=== PATIENT | female | born 1960 | race Caucasian/White ===

== ENCOUNTER 2023-01-29 23:40 | Inpatient (IN) | payer OTHER ==
[~2023-01-29] VITALS: Ht 172.7 cm; Wt 71.5 kg
[2023-01-29 23:59] LABS: BASOPHILS ABSOLUTE AUTO 0.03 K/mm3 (0.00-0.23); BASOPHILS PERCENT AUTO 0 % (0-2); EOSINOPHILS PERCENT AUTO 0 % (0-6); Hematocrit 42.2 % (33.0-51.0); Hemoglobin 14.2 g/dL (11.5-16.0); IMMATURE GRAN ABSOLUTE AUTO 0.05 K/mm3 (0.00-0.10); IMMATURE GRAN PERCENT AUTO 0 % (0-1); LYMPHOCYTES ABSOLUTE AUTO 0.36 K/mm3 (0.84-5.20); LYMPHOCYTES PERCENT AUTO 2 % (21-46); MONOCYTES ABSOLUTE AUTO 0.36 K/mm3 (0.16-1.47); MONOCYTES PERCENT AUTO 2 % (4-13); Mean Corpuscular HGB 26.2 pg (26.0-34.0); Mean Corpuscular HGB Conc 33.6 g/dL (31.5-36.5); Mean Corpuscular Volume 78 fL (80-100); Mean Platelet Volume 9.9 fL (9.1-12.4); NEUTROPHILS ABSOLUTE AUTO 13.95 K/mm3 (1.96-9.15); NEUTROPHILS PERCENT AUTO 95 % (41-73); Platelet Count 168 K/mm3 (150-400); RDW Coefficient Variation 13.5 % (11.7-14.2); RDW Standard Deviation 38.1 fL (35.1-46.3); Red Blood Cell Count 5.43 M/mm3 (3.80-5.20); White Blood Cell Count 14.75 K/mm3 (4.00-11.30)
[2023-01-30 00:12] LABS: Albumin, Blood 3.9 g/dL (3.4-5.0); Bilirubin, Total 0.6 mg/dL (0.1-1.0); Bun/Creatinine Ratio 19.2 (12.0-20.0); Calcium, Blood 10.6 mg/dL (8.5-10.1); Creatinine, Blood 1.04 mg/dL (0.40-1.00); Potassium, Blood 4.2 mmol/L (3.5-5.5); Total Protein, Blood 7.9 g/dL (6.4-8.2)
[2023-01-30 02:00] LABS: Source, Urine Straight Cath
[2023-01-30 02:06] LABS: Appearance, Urine Clear (Clear); Bilirubin, Urine Neg (Neg); Blood, Urine 1+ (Neg); Color, Urine Yellow (P-Yellow); Glucose Qualitative, Urine Neg (Neg); Ketones, Urine Neg (Neg); Leukocyte Esterase, Urine Neg (Neg); Nitrite, Urine Neg (Neg); Protein, Urine 2+ (Neg); Specific Gravity, Urine 1.025 (1.003-1.022); Urobilinogen, Urine NORM (Normal)
[2023-01-30 02:19] LABS: U Amphetamine Screen Not Detected; U Barbituate Screen Not Detected; U Benzodiazapine Screen Not Detected; U Buprenorphine Screen Not Detected; U Cannabinoids Screen Not Detected; U Cocaine Screen Not Detected; U Methadone Screen Not Detected; U Methamphetamine Screen Not Detected; U Opiates Screen Not Detected; U Oxycodone Screen Not Detected; U Phencyclidine Screen Not Detected; U Propoxyphene Screen Not Detected
[2023-01-30 02:22] LABS: Amorphous Light (0-Heavy); Bacteria Mod /hpf; Granular Casts 0-2 /lpf (0); Hyaline Casts 0-2 /lpf (0-2); Red Blood Cells, Urine 0-2 /hpf (0-2); Squamous Epithelial Cells Few /hpf (Few); White Blood Cells, Urine 0-2 /hpf (0-5)
[2023-01-30 03:20] LABS: BASOPHILS ABSOLUTE AUTO 0.03 K/mm3 (0.00-0.23); BASOPHILS PERCENT AUTO 0 % (0-2); EOSINOPHILS PERCENT AUTO 0 % (0-6); Hematocrit 43.1 % (33.0-51.0); Hemoglobin 14.3 g/dL (11.5-16.0); IMMATURE GRAN ABSOLUTE AUTO 0.04 K/mm3 (0.00-0.10); IMMATURE GRAN PERCENT AUTO 0 % (0-1); LYMPHOCYTES ABSOLUTE AUTO 0.41 K/mm3 (0.84-5.20); LYMPHOCYTES PERCENT AUTO 3 % (21-46); MONOCYTES ABSOLUTE AUTO 0.46 K/mm3 (0.16-1.47); MONOCYTES PERCENT AUTO 4 % (4-13); Mean Corpuscular HGB 26.2 pg (26.0-34.0); Mean Corpuscular HGB Conc 33.2 g/dL (31.5-36.5); Mean Corpuscular Volume 79 fL (80-100); Mean Platelet Volume 9.8 fL (9.1-12.4); NEUTROPHILS ABSOLUTE AUTO 12.25 K/mm3 (1.96-9.15); NEUTROPHILS PERCENT AUTO 93 % (41-73); Platelet Count 158 K/mm3 (150-400); RDW Coefficient Variation 13.7 % (11.7-14.2); RDW Standard Deviation 39.2 fL (35.1-46.3); Red Blood Cell Count 5.46 M/mm3 (3.80-5.20); White Blood Cell Count 13.19 K/mm3 (4.00-11.30)
[2023-01-30 03:31] LABS: Albumin, Blood 3.7 g/dL (3.4-5.0); Albumin/Globulin Ratio 0.9 (0.8-1.8); Bilirubin, Total 0.5 mg/dL (0.1-1.0); Bun/Creatinine Ratio 18.8 (12.0-20.0); Calcium, Blood 10.2 mg/dL (8.5-10.1); Creatinine, Blood 1.12 mg/dL (0.40-1.00); Globulin, Blood 4.1 g/dL (2.2-4.0); Potassium, Blood 4.4 mmol/L (3.5-5.5); Total Protein, Blood 7.8 g/dL (6.4-8.2)
[2023-01-30 04:01] VITALS: BP 107/77
[2023-01-30 04:16] LABS: Base Excess Venous 3.3 mmol/L; Bicarbonate Venous 26.6 mmol/L (24.0-30.0); PCO2 Venous 45.6 mmHg (38-42)
[2023-01-30 04:18] LABS: Creatine Kinase MB 10.9 ng/mL (0.0-3.6); Creatine Kinase MB Index 4.7 (0.0-4.0)
--- NOTE | 2023-01-30 05:37 | NUR ---
Assumed care of pt at 0340 as an ER admit. Minimally responsive, sounds made with strong verbal stimuli only. Upper extremities slightly contracted, with plantar flexion noted in BLE. Pupils unequal with R being sluggish and L brisk. Minimal responses to pain on RUE and RLE, weak responses in LUE and LLE. Maintains over 90% on 2L NC, baseline is RA. LS dim t/o with shallow breathing pattern. SR with BBB 70's, BEVERLY CP status secondary to AMS. VSS. Cool lower extremities. Urinary incontinence, attends in place. Will report to marguerite RN.
--- NOTE | 2023-01-30 06:49 | NUR ---
0350 - PT ARRIVED TO PCU 09 FROM ED. NOTIFIED BY PRIMARY RN OF CONCERNS OF PT MENTATION AND POTENTIAL CHANGE IN ST ELEVATION ON TELEMETRY. PT DIAPHORETIC ON ARRIVAL TO FLOOR. CBG OBTAINED AND WNL, OTHER VSS, R SIDED DEFICIT AND HYPERREFLEXIA NOTED, GCS [address] BRENDA RICARDO NOTIFIED OF ABOVE FINDINGS AND CONCERNS BY THIS RN. MD STATES NO CHANGES IN EKG. SUGGESTED LUMBAR PUNCTURE D/T PT PRESENTATION, DR. RICARDO STATES NO LP AT THIS TIME UNLESS PT FEVERS. UPDATED PRIMARY RN - SHE RESPONSE
[2023-01-30 07:20] VITALS: BP 113/79
--- NOTE | 2023-01-30 08:15 | NUR ---
AM NOTE: PATIENT WAKES DURING BEDSIDE REPORT AND SMILES AT THIS RN. STATES SHE IS NOT HAVING ANY PAIN BUT IS CONFUSED AT WHY SHE IS HERE AND UNABLE TO TELL ME DETAILS. STATES NAME, , THAT SHE IS VISITING FROM [place], HER PARENTS NAMES AND THINKS THAT SHE IS IN [place]. NOT ABLE TO RECALL ANY DETAILS ON HOW SHE GOT TO THE HOSPITAL OR HER DAY YESTERDAY. STATES SHE REMEMBERS FEELING ILL BUT CANNOT RECALL ANY SYMPTOMS. PERRLA. 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 NOTED TO BE OVERALL WEAK AND SLOW WHEN MOVING. ABLE TO TURN SELF IN BED. DENIES NUMBNESS/TINGLING. DENIES OVERALL PAIN. NO FACIAL DROOP NOTED. UPON INITIAL ASSESSMENT THIS RN ORIENTED TO HOSPITAL, CALL LIGHT AND UNIT. RETURNING ABOUT 15 MIN LATER THIS RN HAD TO REORIENT TO HOSPITAL, CALL LIGHT AND UNIT ONCE AGAIN. PATIENT NOT ABLE TO RETAIN SHORT TERM AT THIS TIME. ON 2L NASAL CANNULA SATING MID 90'S. BASELINE ROOM AIR. LUNGS SOUNDING CLEAR AND DIMINISHED THROUGHOUT. ABLE TO HEAR RIGHT SIDED LUNG SOUNDS MORE CLEARLY COMPARED TO LEFT. DENIES SOB/COUGH. EVEN AND UNLABORDED RESPIRATIONS. TELE SHOWING SR WITH BBB. DENIES CHEST PAIN/PRESSURE/PALPITATIONS. BP STABLE. HR 70-80'S. ECHO PLANNED FOR THIS AM WELL CARDIOLOGY CONSULT. PATIENT NPO. TROPS AND CK LABS TRENDING. NS INFUSING PER EMAR. DENIES ABDOMINAL PAIN/NAUSEA. BOWEL TONES PRESENT. ATTENDS IN PLACE. NPO. Q6 BLOOD SUGARS. SKIN OVERALL C/D/I. PALE SKIN. SPOKE WITH SISTER MILTON ([phone]) ON PHONE THIS AM WITH PATIENT PERMISSION. PLAN FOR MILTON AND PATIENT TO ARRIVE AT HOSPITAL AROUND NOON TODAY. BED ALARM ON, CALL LIGHT IN REACH.
--- NOTE | 2023-01-30 09:41 | NUR ---
DR. POLLOCK AND DR. ZEE BY THIS AM. PLAN FOR ECHO TODAY. NEW LABS TO BE DRAWN AROUND 1015. THIS RN PLACED CALL TO LAB TO CONFIRM CREATINE KINASE RESULTS OF [address] ZEE REQUEST. LAB CONFIRMS RESULTS AT 232. DC ISO. PLAN FOR BEDSIDE SWALLOW EVAL.
--- NOTE | 2023-01-30 10:45 | NUR ---
ECHO WITH BUBBLE STUDY BEING DONE AT THIS TIME. PLAN FOR PATIENT TO MOVE TO PCU 01. CALL PLACED TO SISTER MILTON TO UPDATE. BOTH MILTON AND UPDATE ON PHONE WITH PATIENT PERMISSION.
[2023-01-30 11:09] VITALS: BP 113/72
[2023-01-30 11:29] LABS: CPK Creatine Kinase 174 U/L (26-193)
--- NOTE | 2023-01-30 11:55 | NUR ---
CALL FROM DR. ZEE TO THIS RN. PLAN TO CALL AND UPDATE DR. ZEE WHEN FAMILY ARRIVES.
--- NOTE | 2023-01-30 13:30 | NUR ---
DR. ZEE IN TO DISCUSS ECHO RESULTS WITH PATIENT AND FAMILY. PLAN FOR NPO AT MIDNIGHT AND ROXANNA TOMORROW MORNING. PATIENT TO MRI AT THIS TIME. CALL PLACED TO DR. MACKENZIE TO UPDATE ON MRI.
[2023-01-30 15:08] LABS: CHOL/HDL RATIO 3.9; Cholesterol 307 mg/dL (50-200); HDL Cholesterol 79 mg/dL (>39); LDL/HDL RATIO 2.5; Low Density Lipoprotein Chol 201 mg/dL (0-110); Triglycerides 134 mg/dL (30-160); Very Low Density Lipoprot Chol 26 mg/dL (6-32)
[2023-01-30 16:08] VITALS: BP 122/68
[2023-01-30 16:10] LABS: International Normalized Ratio 1.05
--- NOTE | 2023-01-30 16:42 | NUR ---
DR. POLLOCK IN TO DISCUSS MRI RESULTS WITH PATIENT AND DON. THIS RN REMAINS AT BEDSIDE. HEPARIN STARTED. REMAINS AT BEDSIDE. PLAN FOR ROXANNA TOMORROW AT 1000. ORDERS TO PAUSE HEPARIN 5 HOURS PRIOR TO ROXANNA. PLAN FOR HEPARIN TO BE PAUSED AT 0500 ON 01/31.
--- NOTE | 2023-01-30 18:11 | NUR ---
SHIFT SUMMARY: PATIENT COMPLAINS OF 6/10 HEADACHE THAT IS THROBBING AND POINTS TO TEMPLES. STATES SHE INTERMIT GETS HEADACHES/MIGRAINES AT HOME AND USUALLY PLACES A ICE PACK ON HER NECK AND TAKES TYLENOL. CALL PLACED TO DR. POLLOCK TO UPDATE ON HEADACHE. ORDERS FOR TYLENOL. PATIENT SLEEPING AT THIS TIME. REMAINS AT BEDSIDE. VITALS REMAINS STABLE. NO CHANGES TO NEURO. PATIENT REMAINS ALERT AND ORIENTED X3. SEEMS TO BE MORE CLEAR COMPARED TO THIS AM. PATIENT STILL FEELING FUZZY. REMAINS ON 2L NASAL CANNULA. TELE SHOWING SR WITH BBB. UP SBA TO BATHROOM. VOIDING WNL. DRINKING SMALL AMOUNTS OF WATER. VERY POOR APPEATITE. SEE PREVIOUS NOTES FOR DETAILS THROUGHOUT SHIFT.
[2023-01-30 20:15] VITALS: BP 126/86
[2023-01-31] VITALS (31 sets, daily range): BP systolic 112–153; BP diastolic 64–95
[2023-01-31 04:01] LABS: BASOPHILS ABSOLUTE AUTO 0.04 K/mm3 (0.00-0.23); BASOPHILS PERCENT AUTO 1 % (0-2); EOSINOPHILS ABSOLUTE AUTO 0.11 K/mm3 (0.00-0.68); EOSINOPHILS PERCENT AUTO 2 % (0-6); Hematocrit 39.9 % (33.0-51.0); Hemoglobin 13.1 g/dL (11.5-16.0); IMMATURE GRAN ABSOLUTE AUTO 0.01 K/mm3 (0.00-0.10); IMMATURE GRAN PERCENT AUTO 0 % (0-1); LYMPHOCYTES ABSOLUTE AUTO 1.04 K/mm3 (0.84-5.20); LYMPHOCYTES PERCENT AUTO 20 % (21-46); MONOCYTES ABSOLUTE AUTO 0.58 K/mm3 (0.16-1.47); MONOCYTES PERCENT AUTO 11 % (4-13); Mean Corpuscular HGB 26.5 pg (26.0-34.0); Mean Corpuscular HGB Conc 32.8 g/dL (31.5-36.5); Mean Corpuscular Volume 81 fL (80-100); Mean Platelet Volume 10.2 fL (9.1-12.4); NEUTROPHILS ABSOLUTE AUTO 3.42 K/mm3 (1.96-9.15); NEUTROPHILS PERCENT AUTO 66 % (41-73); Platelet Count 119 K/mm3 (150-400); RDW Standard Deviation 40.6 fL (35.1-46.3); Red Blood Cell Count 4.95 M/mm3 (3.80-5.20)
[2023-01-31 04:26] LABS: Albumin, Blood 3.2 g/dL (3.4-5.0); Albumin/Globulin Ratio 0.9 (0.8-1.8); Bilirubin, Total 0.5 mg/dL (0.1-1.0); Bun/Creatinine Ratio 19.6 (12.0-20.0); Creatinine, Blood 0.97 mg/dL (0.40-1.00); Globulin, Blood 3.4 g/dL (2.2-4.0); Magnesium, Blood 2.3 mg/dL (1.6-2.4); Phosphorus, Blood 2.6 mg/dL (2.5-4.9); Potassium, Blood 3.8 mmol/L (3.5-5.5); Total Protein, Blood 6.6 g/dL (6.4-8.2)
--- NOTE | 2023-01-31 06:45 | NUR ---
SHIFT SUMMARY PATIENT A&OX2-3. SHORT TERM MEMORY DEFICIT OF RECENT EVENTS LEADING UP TO HOSPITALIZATION. MOVES ALL EXTREMETIES, WEAKNESS NOTED. HEPARIN ON SB FOR PROCEDURE THIS AM. AT BEDSIDE. VS STABLE.
--- NOTE | 2023-01-31 09:17 | NUR ---
AM NOTE: PATIENT ALERT AND ORIENTED X3. STILL FEELING "FUZZY". PERRLA. 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 OVERALL REMAINS WEAK. DENIES N/T. DENIES OVERALL PAIN. UP WITH SBA. ABLE TO TURN AND MOVE SELF IN BED. REMAINS AT BEDSIDE. ON 2L NASAL CANNULA SATING HIGH 90'S. LUNGS SOUNDING CLEAR AND DIM IN BASES. DENIES SOB/COUGH. SUCTION AT BEDSIDE. EVEN AND UNLABORED BREATHS. TELE SHOWING SR WITH BBB. BP STABLE. HR 70-80'S. DENIES CHEST PAIN/PRESSURE. HEPARIN PAUSED THIS AM PER OPERATIONS EXPERT AROUND 0500 AM. PLAN FOR ROXANNA THIS AM WITH DR. ZEE. PPP. DENIES ABDOMINAL PAIN/NAUSEA. NPO AT THIS TIME. SKIN OVERALL C/D/I.
--- NOTE | 2023-01-31 11:17 | NUR ---
ROXANNA COMPLETED. DR. ZEE, GROUP HOME MANAGER, THIS RN AND LINEN WORKER AT BEDSIDE THROUGHOUT ROXANNA. ORDERS TO RESTART HEPARIN POST ROXANNA, THIS RN PLACED CALL TO PHARMACY. HEPARIN INFUSING PER EMAR. POST PROCEDURE VITALS IN PLACE. REMAINED AT BEDSIDE FOR ROXANNA. DR. ZEE UPDATED AND PATIENT POST ROXANNA. SEE CHARTED VITALS. PATIENT RESTING AT THIS TIME. WILL RESUME DIET WHEN PATIENT IS ALERT AND SAFE TO SWALLOW.
--- NOTE | 2023-01-31 18:20 | NUR ---
SHIFT SUMMARY: NO ACUTE CHANGES. PATIENT MENTATION HAS IMPROVED THROUGHOUT SHIFT. VITAL SIGNS REMAIN STABLE. UP TO BATHROOM WITH ONE PERSON ASSIST. TELE REMAINS SR WITH HR 70'S. BP STABLE. ON ROOM AIR SATING MID 90'S. EATING WNL. FAMILY TO BEDSIDE THIS EVENING TO VISIT. HEPARIN GTT CONTINUES PER EMAR ORDERS.
[2023-02-01] VITALS: BP 140/78
[2023-02-01 00:32] LABS: BASOPHILS ABSOLUTE AUTO 0.03 K/mm3 (0.00-0.23); BASOPHILS PERCENT AUTO 1 % (0-2); EOSINOPHILS ABSOLUTE AUTO 0.09 K/mm3 (0.00-0.68); EOSINOPHILS PERCENT AUTO 2 % (0-6); Hematocrit 39.8 % (33.0-51.0); Hemoglobin 13.1 g/dL (11.5-16.0); IMMATURE GRAN ABSOLUTE AUTO 0.01 K/mm3 (0.00-0.10); IMMATURE GRAN PERCENT AUTO 0 % (0-1); LYMPHOCYTES ABSOLUTE AUTO 1.03 K/mm3 (0.84-5.20); LYMPHOCYTES PERCENT AUTO 26 % (21-46); MONOCYTES ABSOLUTE AUTO 0.45 K/mm3 (0.16-1.47); MONOCYTES PERCENT AUTO 12 % (4-13); Mean Corpuscular HGB 26.4 pg (26.0-34.0); Mean Corpuscular HGB Conc 32.9 g/dL (31.5-36.5); Mean Corpuscular Volume 80 fL (80-100); Mean Platelet Volume 10.1 fL (9.1-12.4); NEUTROPHILS ABSOLUTE AUTO 2.29 K/mm3 (1.96-9.15); NEUTROPHILS PERCENT AUTO 59 % (41-73); Platelet Count 124 K/mm3 (150-400); RDW Coefficient Variation 13.8 % (11.7-14.2); RDW Standard Deviation 40.2 fL (35.1-46.3); Red Blood Cell Count 4.96 M/mm3 (3.80-5.20)
[2023-02-01 01:00] LABS: Albumin, Blood 3.3 g/dL (3.4-5.0); Anion Gap 8 mmol/L (6-16); Blood Urea Nitrogen 22 mg/dL (8-24); Bun/Creatinine Ratio 21.6 (12.0-20.0); CO2, Blood 27 mmol/L (21-32); Calcium, Blood 9.2 mg/dL (8.5-10.1); Chloride, Blood 107 mmol/L (98-108); Creatinine, Blood 1.02 mg/dL (0.40-1.00); Glomerular Filtration Rate 63 (60-); Glucose, Blood 96 mg/dL (70-99); Magnesium, Blood 2.5 mg/dL (1.6-2.4); Phosphorus, Blood 2.2 mg/dL (2.5-4.9); Potassium, Blood 3.8 mmol/L (3.5-5.5); Sodium, Blood 142 mmol/L (136-145)
[2023-02-01 04:02] VITALS: BP 129/85
--- NOTE | 2023-02-01 05:49 | NUR ---
SHIFT SUMMARY ASSUMED CARE OF PT AT 1900. PT IS A/OX4. HEART SOUNDS REGULAR. LUNG SOUNDS CLEAR. PT C/O CHEST BEING SORE, STATES POSSIBLY FROM ROXANNA. PT HAD NO NEURO DEFICITS. PT TOOK A SHOWER WITH MINIMAL HELP. WAS ABLE TO GO SOME SLEEP THIS NOC.
[2023-02-01 07:51] VITALS: BP 131/78
[2023-02-01 13:43] VITALS: BP 142/94
[2023-02-01 14:42] VITALS: BP 142/94
--- NOTE | 2023-02-01 15:08 | NUR ---
PATIENT DOES HAVE A [employer] TRANSFER ORDER AND HAS A ROOM NUMBER. SHE WILL BE TRANSPORTED TO [facility] TO ROOM 5319. THIS NURSE JUST CALLED ANTONIO VICENTE AT [facility] AND GAVE REPORT TO HER. AFTER GIVING REPORT ANTONIO VICENTE HAD NO FURTHER QUESTIONS AT THIS TIME. PATIENT AND FAMILY ARE AWARE AND WERE UPDATED ON TRANSPORT. PATIENT IS A&OX4. VS ARE WNL AND IS ON RA. SHE IS TOLERATING PO INTAKE AND IS VOIDING. SHE IS A SBA TO THE BATHROOM AND WALKING THE HALLWAYS DUE TO HER IV HEPARIN DRIP CORDS. PATIENT WILL BE TRANSPORTED WITH THE IV HEPARIN. SHE HAS A NEW POWERGLIDE THAT WAS PLACED EARLIER TODAY IN HER [place] THAT DRAWS BLOOD BUT IS SALINE LOCKED AT THIS TIME. HEPARIN IS RUNNING IN HER LEFT FOREARM IV THAT IS WNL. PATIENT HAS HER ITEMS IN THE ROOM GATHERED AND IS AWAITING FOR AMBULANCE TRANSPORT FROM [facility] THAT WILL COME IN ABOUT 30 MINUTES TO PICK HER UP AND TAKE HER UP THERE. PATIENT HAS NOT BEEN LETHARGIC OR CONFUSED THROUGHOUT SHIFT. PATIENT REPORTS "I FEEL EVEN BETTER THAN YESTERDAY!". DENIES NUMBNESS OR TINGLING AND CAN MOVE ALL FINGERS AND TOES WHEN ASKED. PATIENT IS CURRENTLY LAYING IN BED WITH CALL LIGHT IN REACH AND FAMILY AT BEDSIDE.
--- NOTE | 2023-02-01 15:38 | NUR ---
TRANSPORT JUST ARRIVED AND IS TAKING PATIENT IN THEIR GURNEY. IV HEPARIN DRIP WAS ALSO TAKEN WITH HER. HER SPOUSE WILL BE RIDING WITH HER IN THE AMBULANCE. PATIENT HAS PERSONAL ITEMS IN THE ROOM GATHERED.
== END 2023-02-01 15:40 | disposition short-term general hospital (02) | DRG 65 ==
LOC: ER 23:40 → PCU 01-30 03:21
PROVIDERS: Family Medicine; Student in an Organized Health Care Education/Training Program; ADMIT Internal Medicine
PROC: B245ZZ4 Ultrasonography of Left Heart, Transesophageal (ICD-10-PCS; principal; 2023-01-31)
DX: I63.9 Cerebral infarction, unspecified (principal); G93.49 Other encephalopathy; I31.8 Other specified diseases of pericardium; I34.1 Nonrheumatic mitral (valve) prolapse; I51.89 Other ill-defined heart diseases; D72.829 Elevated white blood cell count, unspecified; I44.7 Left bundle-branch block, unspecified; R09.02 Hypoxemia; E86.0 Dehydration; Z90.49 Acquired absence of other specified parts of digestive tract; Z98.891 History of uterine scar from previous surgery
CPT/HCPCS: 36415; 51701; 70450; 70551; 71045; 71260; 80053; 80061; 80069; 81001; 82140; 82550; 82553; 82803; 82947; 83036; 83605; 83735; 83880; 84100; 84484; 85025; 85379; 85610; 85730; 87040; 93005; 93010; 93306; 93312; 93325; 94762; 96374-59; 96375-59; 97110; 97116; 97162; 99285-25; A9270; C1751; G0480; J1644; J1650; J2060; J2250; J2765; J3010; J7030; J7040; J7060; Q9967